=== PATIENT | male | born 1995 | race Hispanic/Latino ===

== ENCOUNTER 2018-02-19 10:17 | Emergency (ER) | payer OTHER ==
[2018-02-19 11:16] VITALS: BP 134/65
[2018-02-19] MEDS ORDERED: MOTRIN PO ONE (12:44)
--- NOTE | 2018-02-19 12:48 | Emergency Department Report ---
- General Chief Complaint: Upper Respiratory Infection Stated Complaint: FLU SYMPTOMS Time Seen by Provider: 02/19/18 12:43 Source: patient Mode of arrival: Ambulatory Limitations: No Limitations - History of Present Illness Initial Comments: Patient reports sudden onset of sore throat, body aches, fever, nasal drainage and sneezing that started yesterday MD Complaint: fever, cough, sore throat, rhinorrhea Onset/Timin -: hour(s) Severity: moderate Severity scale (0 -10): 7 Quality: dull, other Consistency: constant Improves With: nothing Worsens With: activity, changing head position Context: other (unknown) Associated Symptoms: fever, chills, myalgias, rhinorrhea, sore throat. denies: diaphoresis, headache, nasal congestion, stiff neck, cough, chest pain, shortness of breath, abdominal pain, nausea, vomiting, diarrhea, dysuria, rash, confusion, right sweats, weight loss, epistaxis, ear pain Treatments Prior to Arrival: other (Dayquil and Nyquil) - Related Data Previous Rx's Medication Instructions Recorded Last Taken Type Ibuprofen 600 mg PO TID #30 tablet 02/19/18 Unknown Rx Loratadine [Claritin] 10 mg PO DAILY #15 tablet 02/19/18 Unknown Rx Allergies Allergy/AdvReac Type Severity Reaction Status Date / Time No Known Allergies Allergy Unverified 02/19/18 11:16 ED Review of Systems ROS: Stated complaint: FLU SYMPTOMS Other details as noted in HPI Constitutional: chills, fever. denies: diaphoresis, malaise, weakness Eyes: denies: eye pain, eye discharge, vision change ENT: throat pain, other (nasal drainage). denies: ear pain, dental pain, hearing loss, epistaxis Respiratory: denies: cough, orthopnea, shortness of breath, SOB with exertion, SOB at rest, stridor, wheezing Cardiovascular: denies: chest pain, palpitations, dyspnea on exertion, orthopnea , edema, syncope, paroxysmal nocturnal dyspnea Gastrointestinal: denies: abdominal pain, nausea, vomiting, diarrhea Musculoskeletal: denies: back pain, joint swelling, arthralgia Skin: denies: rash, lesions Neurological: denies: headache, weakness, paresthesias Psychiatric: denies: anxiety, depression Hematological/Lymphatic: denies: easy bleeding, easy bruising ED Past Medical Hx - Past Medical History Previous Medical History?: No - Surgical History Past Surgical History?: No - Social History Smoking Status: Never Smoker Substance Use Type: None - Medications Home Medications: Home Medications Medication Instructions Recorded Confirmed Last Taken Type Ibuprofen 600 mg PO TID #30 tablet 02/19/18 Unknown Rx Loratadine [Claritin] 10 mg PO DAILY #15 tablet 02/19/18 Unknown Rx ED Physical Exam - General Limitations: No Limitations General appearance: alert, in no apparent distress - Head Head exam: Present: atraumatic, normocephalic - Eye Eye exam: Present: normal appearance, PERRL, EOMI Pupils: Present: normal accommodation - ENT ENT exam: Present: normal orophraynx, mucous membranes moist, TM's normal bilaterally, normal external ear exam, other (rhinnorhea) - Expanded ENT Exam Expanded Ear exam: Present: normal external inspection. Absent: auricular hematoma, auricular trauma Mouth exam: Present: normal external inspection, tongue normal. Absent: drooling, trismus, muffled voice, tongue elevation, laceration Teeth exam: Present: normal inspection. Absent: dental caries, fractured tooth #, dental tenderness #, gingival enlargement Throat exam: Positive: normal inspection. Negative: tonsillar erythema, tonsillomegaly, tonsillar exudate, R peritonsillar mass, L peritonsillar mass - Neck Neck exam: Present: normal inspection, full ROM, lymphadenopathy. Absent: tenderness, meningismus, thyromegaly - Respiratory Respiratory exam: Present: normal lung sounds bilaterally. Absent: respiratory distress, wheezes, rales, rhonchi, stridor, chest wall tenderness, accessory muscle use, decreased breath sounds, prolonged expiratory - Cardiovascular Cardiovascular Exam: Present: regular rate, normal rhythm, normal heart sounds. Absent: systolic murmur, diastolic murmur, rubs, gallop - Extremities Exam Extremities exam: Present: normal inspection, full ROM, normal capillary refill - Back Exam Back exam: Present: normal inspection, full ROM - Neurological Exam Neurological exam: Present: alert, oriented X3, CN II-XII intact, normal gait, reflexes normal - Psychiatric Psychiatric exam: Present: normal affect, normal mood - Skin Skin exam: Present: warm, dry, intact, normal color. Absent: rash ED Course Vital Signs 02/19/18 11:14 Temperature 98.3 F Pulse Rate 68 Respiratory 18 Rate Blood Pressure 134/65 O2 Sat by Pulse 100 Oximetry - Reevaluation(s) Reevaluation #1: 02/19/18 12:48 labs and analgesics ordered ED Medical Decision Making - Lab Data Vital Signs 02/19/18 11:14 Temperature 98.3 F Pulse Rate 68 Respiratory 18 Rate Blood Pressure 134/65 O2 Sat by Pulse 100 Oximetry Lab Results 02/19/18 02/19/18 Range/Units Unknown Unknown Influenza A (Rapid) Negative (Negative) Influenza B (Rapid) Negative (Negative) Group A Strep Rapid Negative (Negative) - Medical Decision Making During the course of ED, analgesic and labs were ordered. Patient was sent home with prescriptions for Claritin and Ibuprofen, instructed to follow up with PCP , he verbalized understanding - Differential Diagnosis URI, Influenza, Strep Throat Critical care attestation.: If time is entered above; I have spent that time in minutes in the direct care of this critically ill patient, excluding procedure time. ED Disposition Clinical Impression: Upper respiratory infection Qualifiers: URI type: unspecified URI Qualified Code(s): J06.9 - Acute upper respiratory infection, unspecified Disposition: DC-01 TO HOME OR SELFCARE Is pt being admited?: No Does the pt Need Aspirin: No Condition: Stable Instructions: Upper Respiratory Infection (ED) Additional Instructions: Take medication as directed. Drink plenty of fluids in order to maintain hydration. Follow up with the selective referral given at discharge or your PCP Prescriptions: Ibuprofen 600 mg PO TID #30 tablet Loratadine [Claritin] 10 mg PO DAILY #15 tablet Referrals: PRIMARY CARE, [Primary Care Provider] - 3-5 Days Forms: Work/School Release Form(ED) Time of Disposition: 14:09
== END 2018-02-19 14:21 | disposition home or self-care (01) ==
LOC: ED 10:17
DX: J06.9 Acute upper respiratory infection, unspecified (principal)
CPT/HCPCS: 87116; 87400; 87430; 99283